=== PATIENT | male | born 1945 | race Caucasian/White ===

== ENCOUNTER 2024-06-28 10:03 | Outpatient (CLI) | payer MEDICARE ==
[~2024-06-28] VITALS: Ht 185.4 cm; Wt 99.8 kg
[2024-06-28 10:45] LABS: TOTAL HEMOGLOBIN 12.6 G/dl (13.5-17.5)
[2024-06-28] MEDS: albuterol 2.5 MG/3 ML nebule NEB ONE (11:26)
[2024-06-28 11:30] VITALS: PULSE 95; RESP 24; O2SAT 90
[2024-06-28 11:50] VITALS: PULSE 88; RESP 18
--- NOTE | 2024-06-29 15:47 | PROCEDURE NOTE - Respiratory ---
Procedure Note-Respiratory Providers to Copies To 1: LEVON VELASQUEZ MD Procedure Name: This is a complete pulmonary function study dated June 28, 2024. Hemoglobin measurement was done as part of the study. Spirometry measurements: There is substantial reduction in both the forced vital capacity and the FEV1. The FEV1 ratio is also quite low. All of the measured flow rates are very poor. After inhaled bronchodilator the flow rate measurements show slight improvement. Lung volume measurements: The total lung capacity and functional residual capacity measurements are normal. The residual volume is slightly elevated. Lung diffusion measurement: The DLCO is clearly reduced. This indicates abnormal gas transfer abilities of the lung. It is noted that the hemoglobin measurement is in the lower range of normal. Airway resistance measurement: The airway resistance is significantly elevated. This again suggests significant airway obstruction. Overall conclusion: This study shows severe abnormality. There is evidence for severe obstructive ventilatory defect. This is consistent with the patient's diagnosis of smoking-related COPD. The DLCO measurement is reduced which s uggests a possible component of emphysema. The patient shows slight improvement with inhaled bronchodilator. Continued use of inhaled bronchodilator medication is recommended. We have no previous studies for comparison. Close pulmonary follow-up will be required for this patient with severely abnormal lung function. LEVON VELASQUEZ MD June 29, 2024 15:47
== END 2024-06-28 23:59 | disposition home or self-care (01) ==
LOC: RT 10:03
PROVIDERS: ATTEND Internal Medicine Pulmonary Disease
DX: J44.9 Chronic obstructive pulmonary disease, unspecified (principal)
CPT/HCPCS: 85018; 94060; 94727; 94729; 94760

== ENCOUNTER 2025-01-07 08:28 | Inpatient (IN) | payer MEDICARE, MEDICAID ==
[~2025-01-07] VITALS: Ht 185.4 cm; Wt 95.4 kg
[2025-01-07] VITALS (12 sets, daily range): BP systolic 116–118; BP diastolic 54–58; PULSE 80–97; RESP 16–36; TEMP 97.3–97.7; O2SAT 92–97
--- NOTE | 2025-01-07 08:44 | ELECTROCARDIOGRAPH REPORT ---
[facility] Test Date: 2025-01-07 Test Time: 08:41:42 Pat Name: SHARONDA RADER Department: [facility] Patient ID: [facility]-[id number] Room: [place] [address] Gender: M [employer] Att[employer]: : 1945 Requested By: DEBBIE LIANG Order Number: [id number] Reading MD: Dr. SUNG Schmitz Measurements Intervals [place] Rate: 95 P: 30 NH: 153 QRS: -44 QRSD: 96 T: 56 QT: 368 QTc: 463 Interpretive Statements Sinus rhythm Ventricular premature complex Probable left atrial enlargement Left axis deviation Borderline low voltage, extremity leads Consider anterior infarct Electronically Signed On 01-09-2025 19:23:[address] SUNG Schmitz Please click the below link to view image of tracing.
--- NOTE | 2025-01-07 08:51 | RADIOLOGY REPORT ---
CHEST RADIOGRAPH Indication: CP Technique: Single frontal view of the chest was obtained COMPARISON: None FINDINGS: Lines and Tubes: None Lungs: Increased interstitial prominence. This may represent pulmonary vascular congestion and/or viral pneumonia. Left basilar subsegmental atelectasis. Pleura: No effusion. No pneumothorax. Cardiomediastinal contours: Cardiomegaly. Vascular calcifications of the aorta. Bones: Unremarkable IMPRESSION: Increased interstitial prominence. This may represent pulmonary vascular congestion and/or viral pneumonia. Left basilar subsegmental atelectasis.
[2025-01-07 09:36] LABS: MEAN PLATELET VOLUME 8.6 FL (7.4-10.4)
[2025-01-07 10:01] LABS: RED CELL DISTRIBUTION WIDTH 15.9 % (11.5-14.5)
[2025-01-07 10:02] LABS: CREATININE 1.17 MG/DL (0.60-1.10); PRO BRAIN NATRIURETIC PEPTIDE 730 PG/ML (0-450); eCRCL 59 ML/MIN; eGFR 60 ML/MIN
[2025-01-07 10:07] LABS: TOTAL CARBON DIOXIDE 46.6 MMOL/L (24-32)
[2025-01-07] MEDS: ipratropium/albuterol 3ml nebule NEB ONE ×2 (10:15)
--- NOTE | 2025-01-07 10:36 | Physician Documentation ---
History of Present Illness ~ Chief Complaint: Shortness of Breath Stated Complaint: POSS SEPSIS Time Seen by MD: 08:35 Mode of Arrival: EMS HPI 79 yom h/o severe COPD on HOT p/w sob. Reports increasing dyspnea the last few weeks. He was found slumped down on the ground hypoxic not on his home 02. He was placed on 6 L NC by EMS with return to baseline oxygenation and improved men [place] state. Denies any chest pain or fevers. No cough. Just increasing dyspnea. No abdominal pain. lower ext edema worse than usual also endorsed. Medication Reconciliation Allergies: Coded Allergies: Penicillins (Verified Allergy, Unknown, 06/28/24) Review of Systems Constitutional: Denies: fever Respiratory: Reports: shortness of breath Gastrointestinal: Denies: abdominal pain Physical Exam Vital Signs: Temperature: 98.7, Source: Oral, Heart Rate: 91, Respiratory Rate: 16, BP: 128/65, Pulse Oximetry: 97, Weight: 93.800 Oxygen Flow Rate: 1.0 Physical Exam non toxic no jvd awake alert fatigued lungs diminished flow bilaterally no wheezing or rhonchi. abdomen soft non tender lower ext 2+ pitting edema bilaterally skin warm well perfused. Progress Results/Orders Results/Orders Orders - DEBBIE LIANG MD Chest,Single View (01/07/25 08:32) Monitor (01/07/25 08:32) Saline Lock (01/07/25 08:32) Oxygen (01/07/25 08:32) Culture Blood (01/07/25 08:32) Urinalysis, Cult If Indicated (01/07/25 08:32) Straight Cath For Urine Sample (01/07/25 08:32) Abg (Arterial Blood Gas) (01/07/25 ) Bipap/Cpap (01/07/25 ) Abg Current Settings (01/07/25 ) Completed Orders - DEBBIE LIANG MD Chest,Single View (01/07/25 08:32) Cbc/Diff (01/07/25 08:32) BMP (01/07/25 08:32) PBNP (01/07/25 08:32) Electrocardiogram (01/07/25 08:32) Hs Troponin I W Calculations (01/07/25 08:32) Hs Troponin I W Calculations (01/07/25 10:32) Procalcitonin (01/07/25 08:32) Lacticsepsis (01/07/25 08:32) Ipratropium/Albuterol Nebule (Ipratrop/A (01/07/25 09:30) Methylprednisolone Sod Succ (Solumedrol (01/07/25 10:10) Ipratropium/Albuterol Nebule (Ipratrop/A (01/07/25 10:10) Furosemide Inj (Lasix Inj) (01/07/25 10:10) Medications Received in ER Medications (Trade) Dose Ordered Sig/Windy Route PRN Reason Start Time Stop Time Status Last Admin Dose Admin (ipratrop/ albuterol 0.5-3(2.5) MG/3ml nebule) 3 ml ONCE ONCE NEB 01/07/25 09:30 01/07/25 09:31 DC 01/07/25 10:41 3 ML (SoluMEDROL 125mg inj) 125 mg ONCE ONCE IV 01/07/25 10:10 01/07/25 10:16 DC 01/07/25 10:40 125 MG (ipratrop/ albuterol 0.5-3(2.5) MG/3ml nebule) 3 ml ONCE ONCE NEB 01/07/25 10:10 01/07/25 10:16 DC 01/07/25 10:15 3 ML (Lasix inj) 60 mg ONCE ONCE IV 01/07/25 10:10 01/07/25 10:16 DC 01/07/25 10:39 60 MG Vital Signs 01/07/25 01/07/25 01/07/25 01/07/25 08:33 08:46 08:52 09:16 Temp 98.7 98.7 98.7 Pulse 99 101 96 Resp 18 B/P (MAP) 135/72 135/72 (93) 128/65 (86) Pulse Ox 95 85 97 O2 Flow Rate 6.0 6.0 1.0 01/07/25 01/07/25 01/07/25 01/07/25 10:17 10:48 10:53 11:01 Pulse 91 91 91 94 Resp 16 19 20 18 19 18 Pulse Ox 97 96 92 94 O2 Delivery Nasal Cannula* BiPAP+ O2 Flow Rate 5 FiO2 40 40 40 40 01/07/25 01/07/25 11:08 11:10 Temp 98.7 Pulse 81 Resp 18 B/P (MAP) 125/65 (85) Pulse Ox 95 95 O2 Delivery BiPAP+ FiO2 40 40 Laboratory Tests Test 01/07/25 08:55 01/07/25 10:36 01/07/25 10:51 White Blood Count 9.1 Red Blood Count 4.36 L Hemoglobin 12.2 L Hematocrit 37.6 L Mean Corpuscular Volume 86.2 Mean Corpuscular Hemoglobin 27.9 Mean Corpuscular Hemoglobin Concent 32.4 L Red Cell Distribution Width 15.9 H Platelet Count 229 Mean Platelet Volume 8.6 Neutrophils (%) (Auto) 82.0 H Lymphocytes (%) (Auto) 7.9 L Monocytes (%) (Auto) 8.5 Eosinophils (%) (Auto) 1.2 Basophils (%) (Auto) 0.4 Neutrophils # (Auto) 7.5 Lymphocytes # (Auto) 0.7 L Monocytes # (Auto) 0.8 Eosinophils # (Auto) 0.1 Basophils # (Auto) 0.0 CBC Comment Sodium Level 142 Potassium Level 4.4 Chloride Level 97 L Carbon Dioxide Level 46.6 *H Anion Gap -2 L Blood Urea Nitrogen 29 H Creatinine 1.17 H Estimated GFR/1.73 m2 60 BUN/Creatinine Ratio 24.8 H Glucose Level 114 H Lactic Acid Level 1.1 Calcium Level 9.1 Troponin I High Sensitivity 15 16 Pro-B-Type Natriuretic Peptide 730 H Albumin 3.1 L Procalcitonin < 0.05 Chemistry Comments Troponin I High Sens Percent Delta 6 Troponin I Hi Sens Absolute Change 1 Blood Gas Specimen Type Arterial Blood Gas Puncture Site Rr O2 Saturation 92.2 L Arterial Blood pH (Temp corrected) 7.160 *L Arterial Blood pCO2 (Temp correct) > 150.0 *H Arterial Blood pO2 (Temp corrected) 75.2 L Arterial Blood PO2/FiO2 Ratio 1.93 Arterial Blood HCO3 55.4 H Arterial Blood Base Excess 19.4 H Arterial Blood Oxyhemoglobin 91.0 L Arterial Blood Carboxyhemoglobin 1.2 Arterial Blood Methemoglobin 0.1 Arterial Blood Deoxyhemoglobin 7.7 H Marcos Test Modified Blood Gas Hemoglobin 13.6 Blood Gas Temperature 36.6 Blood Gas Set Respiration Rate 16 Blood Gas Modality Mask - bipap FiO2 40.0 Blood Gas Critical Value Called To dr jessica francois Microbiology Date/Time Source Procedure Growth Status 01/07/25 09:04 Blood Arm Right Blood Culture - Preliminary NEGATIVE (LESS THAN 24 HOURS) Resulted EKG/XRAY/CT/US/VASC/MRI EKG : Additional Comment EKG indepentently interpreted 0841 sinus rhytm rate 95 left axis, normal intervals. No st abnormality. Medical Decision Making Additional information obtaine: old records (spirometry 06/2024 severe flow restriction) Findings 79 yom h/o severe copd p/w dyspnea found to be in mild CHF and hypercapneic respiratory failure requiring bipap. Stable on bipap. Heart Score: 0 Differential Dx:Considerations: Include: anxiety, asthma, bronchitis, cardiogenic shock, CHF, COPD Departure Disposition: ADMITTED INPATIENT Admitted to Inpatient Unit: to hospitalist Impression: Primary Impression: Chronic obstructive pulmonary disease Qualified Codes: J44.1 - Chronic obstructive pulmonary disease with (acute) exacerbation Additional Impression: Respiratory failure Qualified Codes: J96.21 - Acute and chronic respiratory failure with hypoxia; J96.22 - Acute and chronic respiratory failure with hypercapnia Referrals: NO PRIMARY CARE PROVIDER (PCP) Critical Care Note Total Time (mins): 30 Critical Care Note The very real possibility of a deterioration of this patient's condition required the highest level of my preparedness for sudden, emergent intervention. I provided critical care services, which included medication orders, frequent reevaluations of the patient's condition and response to treatment, ordering and reviewing test results, and discussing the case with various consultants. Excludes time spent performing separately billable procedures. The critical care time associated with the care of the patient was thirty minutes in the management of respiratory failure requiring rescue bipap. Signature Scribe Signature: jc Attestation: DEBBIE Bach MD Jan 07, 2025 10:36
[2025-01-07] MEDS: furosemide 10 MG/1 ML 10ml inj IV ONE (10:39)
[2025-01-07 10:56] LABS: ABG BASE EXCESS 19.4 mmol/L (-2.0-3.0); ABG HCO3 55.4 mmol/L (21.0-28.0); ABG OXYGEN SATURATION 92.2 % (94.0-98.0); ABG PCO2 (T) > 150.0 mmHg (35.0-48.0); ABG PH (T) 7.160 (7.350-7.450); ABG PO2 (T) 75.2 mmHg (83.0-108.0); ALLEN'S TEST Modified; FCOHb 1.2 % (0.5-1.5); FHHb 7.7 % (0.0-5.0); FIO2 40.0 mmHg/%; FMetHb 0.1 % (0.0-1.5); FO2Hb 91.0 % (94.0-98.0); MODE MASK - BIPAP; PATIENT TEMPERATURE 36.6; RESPIRATORY RATE 16 b/min; TOTAL HEMOGLOBIN 13.6 G/dl (13.5-17.5)
[2025-01-07 11:58] LABS: ABG BASE EXCESS 20.6 mmol/L (-2.0-3.0); ABG HCO3 55.0 mmol/L (21.0-28.0); ABG OXYGEN SATURATION 92.1 % (94.0-98.0); ABG PCO2 (T) 136.8 mmHg (35.0-48.0); ABG PH (T) 7.222 (7.350-7.450); ABG PO2 (T) 72.8 mmHg (83.0-108.0); ALLEN'S TEST POSITIVE; FCOHb 1.2 % (0.5-1.5); FHHb 7.8 % (0.0-5.0); FIO2 40.0 mmHg/%; FMetHb 0.1 % (0.0-1.5); FO2Hb 90.9 % (94.0-98.0); MODE MASK - BIPAP; PATIENT TEMPERATURE 37.0; RESPIRATORY RATE 18 b/min; TOTAL HEMOGLOBIN 13.4 G/dl (13.5-17.5)
[2025-01-07 11:59] LABS: LEUKOCYTE ESTERASE ,URINE NEGATIVE (Neg); NITRITES, URINE NEGATIVE (Neg); OCCULT BLOOD,URINE NEGATIVE (Neg)
[2025-01-07 12:09] LABS: UA COLLECTION TYPE CLN CATCH MIDSTREAM
[2025-01-07 12:10] LABS: SQUAMOUS EPITHELIAL CELL,UR FEW /LPF (FEW)
--- NOTE | 2025-01-07 12:46 | HISTORY AND PHYSICAL ---
History & Physical Providers to Chief complaint, fall, shortness of breath ~ History of Present Illness Reason for Admit\Complaint: As above History of Present Illness This is a 79 years old white male with history of multiple medical problems including severe COPD on home oxygen at home, noncompliance with home oxygen treatment, history of remote smoking tobacco, hypoalbuminemia metabolic acidosis, presented today to emergency department chief complaint generalized weakness associated with mechanical fall ground level and shortness of breath; in addition patient Reports increasing dyspnea the last few weeks. He was found slumped down on the ground hypoxic not on his home 02. He was placed on 6 L NC by EMS with return to baseline oxygenation and improved mental state. Denies any chest pain or fevers. No cough. Just increasing dyspnea. No abdominal pain. lower ext edema worse than usual also endorsed. In emergency department he was evaluated by physician was diagnosed with chronic COPD in exacerbation, chronic hypoxia in exacerbation, acute respiratory failure placed on BiPAP, and decision was made to admit patient for further evaluation and treatment, no additional complaint or concern. Allergies: Coded Allergies: Penicillins (Verified Allergy, Unknown, 06/28/24) Active prescriptions I reviewed reconciled Home Medications Pending Past Medical History Past Medical History As in HPI Past Surgical History Surgical History Comment As in HPI Past Social History Social History Comment Deny illicit drug abuse tobacco alcohol use live with the family good social support Health Maintenance Health Maintenance Noncontributory ROS ROS Constitutional : no fever , no chills, positive for generalized weakness. No diaphoresis. Allergic/Immunologic, no lymphadenopathy, no hives, no skin eruptions. Eyes, no recent visual changes, no eye pain, no photophobia. Ears, nose, mouth, throat, no sore throat, no nosebleed, no ear pain. Cardiovascular, no palpitations, skipped beats, chest pain, no peripheral edema, Respiratory, positive for dyspnea, orthopnea, cough, no hemoptysis, chest wall pain. Gastrointestinal, no abdominal pain, nausea, vomiting, constipation or diarrhea. : no dysuria, hematuria, pelvic pain, urethral d/c. Endocrine, no polyuria, polydipsia, recent unintentional weight gain or loss. Hematologic/Lymphatic, no petechiae, no enlarged lymph nodes, no bone pain. Integumentary, no rash, no skin lesions, Musculoskeletal, no muscle aches, or pain, no muscle cramps, no recent change in gait Neurological, no dizziness, no headache, no syncope, no paresthesia. Psychiatric, no delusions, visual hallucinations, or hearing hallucinations. ROS - in rest is as in HPI. Exam Vitals: Vital Signs Date Time Temp Pulse Resp B/P (MAP) Pulse Ox O2 Delivery O2 Flow Rate FiO2 01/07/25 11:58 23 40 01/07/25 11:10 95 BiPAP+ 01/07/25 11:08 98.7 81 125/65 (85) 01/07/25 10:17 5 Vital signs, stable ,afebrile. Pulse Oximetry reflects adequate oxygenation on BiPAP FiO2 40%. BMI is 27, weight 93 kg General: well developed, well nourished. Awake , alert, and oriented x4, resting comfortably in the bed, in no acute distress . Skin: Warm, dry, no pallor, no rash or petechiae. HEENT: Atraumatic, normocephalic, EOMI, anicteric sclera B; pink conjunctiva; PERRLA, normal oropharynx, moist oral and nasal mucosa. Tympanic membrane , nose , throat clear. Neck: Trachea midline. Supple, full range of motion, no JVD, bruit , hepatojugular reflex , lymphadenopathy or masses, or other lesions Cardiac: Regular rhythm, regular rate no murmurs, rubs, or gallops. Normal S1 and S2, no S3 noticed. PMI is normal. Respiratory: Equal breath sounds bilaterally, no tachypnea; lungs clear to auscultation bilaterally, no wheezing ,rub or rales, or crackles. Chest wall is symmetric and without deformity. No signs of trauma. Chest wall is nontender. No signs of respiratory distress. Resonance is normal upon percussion bilaterally. Gastrointestinal: Abdomen symmetric, non-distended, soft, non-tender, normal bowel sounds x4 quadrant, normoactive, no hepatosplenomegaly , no masses , no bruit, no flank pain bilaterally. No voluntary guarding, rebound, or rigidity. No tenderness to percussion. No pulsatile masses. Equal femoral pulses. No Peralta's sign or McBurney point tenderness. Back; no CVA tenderness bilaterally, no deformities. Neck and back are without deformity as well. No tenderness noted on palpation of the spinous processes. Spinous processes are midline. Cervical, thoracic, and lumbar paraspinal muscles are not tender and are without spasm. : normal external genitalia, without lesions, swelling, masses or tenderness. Musculoskeletal: Extremities, normal range of motion, non-tender, muscle strength 5/5 x 4. Negative Homans signs bilaterally on lower extremity. Distal pulses full symmetrical, no clubbing, cyanosis , edema. Neurological: Speech is clear, alert, and oriented x 4. No motor or sensory deficit, deep tendon reflexes normal, cerebellar intact. Cranial nerves II-XII intact. Psych: Alert and or appropriate, normal affect. Vascular: Good distal pulses, which are equal x4; capillary refill less than 2 seconds. Lymphatic, no lymphadenopathy. Diagnostic Data Last Recorded Lab Results: 01/07/2585401/07/25854 Advance Care Planning Advanced Care plannin - 30 Minutes Additional Plan Assessment Severe COPD in exacerbation Chronic hypoxic respiratory failure on home oxygen in exacerbation Acute respiratory failure hypoxic hypercapnic Mechanical fall ground level Hypoalbuminemia Respiratory acidosis Noncompliant with treatment Generalized weakness CHF in exacerbation ejection fraction unknown Plan IV antibiotics, Lasix prn IV steroids SVN DuoNeb, oxygen support therapy, patient on BiPAP PT evaluation and treatment Echocardiography pending Additional lab work pending I reconciled home medications DVT gastropathy prophylaxis addressed Sepsis Screening Reassessment Date: Jan 07, 2025 Date of Service: Jan 07, 2025 Billing Provider: CLEO ROMO MD Common Visit Codes: 30714-NRDFWEB INP/OBS CARE (HIGH) Secondary Visit Codes: 11884-[id number] CARE PLAN 30 MINUTES CLEO ROMO MD Jan 07, 2025 12:46
[2025-01-07] MEDS ORDERED: mag hydrox/Alum hydrox/simeth 30ml oral suspension PO PRN (12:50)
[2025-01-07] MEDS ORDERED: HYDROcodone/acetaminophen 10/325mg tab PO PRN (12:50)
[2025-01-07] MEDS ORDERED: acetaminophen 650mg rectal suppository RC PRN (12:50)
[2025-01-07] MEDS ORDERED: magnesium sulf-water 4G/100mL 100 ML IV PRN (12:50)
[2025-01-07] MEDS ORDERED: potassium Cl 40MEQ/1/2NS 520ml 520 ML IV PRN (12:50)
[2025-01-07] MEDS ORDERED: potassium Cl 20 mEq SR tablet PO PRN ×2 (12:50)
[2025-01-07] MEDS ORDERED: bisacodyl 10mg suppository rectal RC PRN (12:50)
[2025-01-07] MEDS ORDERED: HYDROcodone/acetaminophen 5mg/325mg tablet PO PRN (12:50)
[2025-01-07] MEDS ORDERED: magnesium sulf-water 2g/50mL 50 ML IV PRN (12:50)
[2025-01-07] MEDS ORDERED: ipratropium/albuterol 3ml nebule NEB PRN (12:50)
[2025-01-07] MEDS ORDERED: magnesium Cl slow-release 64mg tablet PO PRN (12:50)
[2025-01-07] MEDS ORDERED: ondansetron 4mg rapidly disintigrating tab PO PRN (12:50)
[2025-01-07] MEDS: normal saline 1000ml 1,000 ML IV SCH (13:38)
[2025-01-07] MEDS: levoFLOXACIN-Levaquin 500mg/D5 100 ML IV SCH (13:38)
[2025-01-07 13:41] LABS: PHOSPHORUS 5.2 MG/DL (2.3-4.5); PRO BRAIN NATRIURETIC PEPTIDE 797.0 PG/ML (0-450)
[2025-01-07 14:07] LABS: APTT 30 SECONDS (22-32); INR 1.1 INR
[2025-01-07] MEDS ORDERED: DAPA10TA PO (15:15)
[2025-01-07] MEDS ORDERED: POTA-206 PO (15:15)
[2025-01-07] MEDS ORDERED: OMEP20CA16 PO (15:15)
[2025-01-07] MEDS ORDERED: FURO-150 PO (15:15)
[2025-01-07] MEDS ORDERED: ATOR20TA66 PO (15:15)
[2025-01-07] MEDS ORDERED: ALBU5SOL17 NEB (15:15)
[2025-01-07 15:22] LABS: ABG BASE EXCESS 18.5 mmol/L (-2.0-3.0); ABG HCO3 48.4 mmol/L (21.0-28.0); ABG OXYGEN SATURATION 94.0 % (94.0-98.0); ABG PCO2 (T) 87.7 mmHg (35.0-48.0); ABG PH (T) 7.360 (7.350-7.450); ABG PO2 (T) 71.4 mmHg (83.0-108.0); ALLEN'S TEST POSITIVE; FCOHb 1.0 % (0.5-1.5); FHHb 5.9 % (0.0-5.0); FIO2 40.0 mmHg/%; FMetHb 0.3 % (0.0-1.5); FO2Hb 92.8 % (94.0-98.0); MODE MASK - BIPAP; PATIENT TEMPERATURE 37.0; RESPIRATORY RATE 20 b/min; TOTAL HEMOGLOBIN 12.8 G/dl (13.5-17.5)
[2025-01-07] MEDS ORDERED: FLUT1BLS3 INH (16:29)
[2025-01-07] MEDS: methylPREDNISolone sod succ/PF 40mg inj. IV SCH (19:25)
[2025-01-07] MEDS: docusate sod 100mg capsule PO SCH (19:26)
[2025-01-07] MEDS: heparin, porcine 5000 units/ml vial SQ SCH (19:26)
[2025-01-07] MEDS: K and/or MAG REPLACEMENT MC SCH (19:27)
[2025-01-07] MEDS: albuterol 2.5 MG/3 ML nebule NEB PRN (22:20)
[2025-01-08] VITALS (16 sets, daily range): BP systolic 103–123; BP diastolic 5–60; PULSE 77–102; RESP 16–28; TEMP 97–98.6; O2SAT 84–97
[2025-01-08] MEDS: albuterol 2.5 MG/3 ML nebule NEB SCH (03:35)
[2025-01-08 06:06] LABS: MEAN PLATELET VOLUME 8.9 FL (7.4-10.4); RED CELL DISTRIBUTION WIDTH 16.6 % (11.5-14.5)
[2025-01-08 06:22] LABS: CHOL/HDL RATIO 2.2 (0.00-4.99); CREATININE 1.14 MG/DL (0.60-1.10); LDL CHOLESTEROL 38 MG/DL (50-100); eCRCL 60 ML/MIN; eGFR 62 ML/MIN
[2025-01-08 07:00] LABS: TOTAL CARBON DIOXIDE 43.4 MMOL/L (24-32)
--- NOTE | 2025-01-08 14:57 | CARDIOLOGY REPORT ---
APPROVED REPORT EXAM: Comprehensive 2D, Doppler, and color-flow Echocardiogram. Patient Location: 3027 A Heart Rate: 90's bpm Rhythm: SINUS Indications CONGESTIVE HEART FAILURE PBNP 730 COPD [place] Vessel Pilot: Katt Kwok MD Previous echo: NONE AVAILABLE (AFTER HOURS) 2D Dimensions LVOT Diameter 2.50 (1.8-2.4cm) M-Mode Dimensions Aortic Root 3.79 (2.2-3.7cm) Aortic Valve AoV Peak Omar. 154.6 cm/s AoV VTI 26.0 cm AO Peak GR. 9.6 mmHg AO Mean GR. 5 mmHg LVOT VTI 23.00 cm LVOT Peak Omar. 122.9 cm/s KHLOE (VTI) 4.30 cm2 AV DI 1.01 % Mitral Valve MV Peak Gr. 3 mmHg MV PHT 60 ms MVA (PHT) 3.67 cm2 MV VMax 92.3 cm/s LEFT VENTRICLE Normal appearing LV size and wall thickness. Overall systolic function is normal. LVEF is 60-65%. RIGHT VENTRICLE RV appears normal in size and function. TDS. ATRIA The left atrium size appears normal. TDS. AORTIC VALVE Probable trileaflet AV appears mildly sclerotic obvious stenosis. No insufficiency. TDS. MITRAL VALVE Mild MV annular calcification without stenosis. Trace regurgitation. TDS. TRICUSPID VALVE TV appears structurally normal with trace regurgitation. TDS PULMONIC VALVE Pulmonic valve is grossly normal in structure. TDS GREAT VESSELS The aortic root is upper limit normal in size. PERICARDIUM Normal pericardium. No effusion. Other Information Study Quality: Technically Difficult due to copd, pt extremely sob, and patient positioning.
--- NOTE | 2025-01-08 17:09 | PROGRESS NOTE ---
Daily Progress Note Providers to CC Feels better today ~ Donato-Non Protocol Donato Indications Met/Not Met: F/C Indications Not Met Antibiotic Timeout Antibiotic Ordered?: Yes MRSA Education MRSA Education Provided to pt: Yes Subjective As above Objective Vital Signs Date Time Temp Pulse Resp B/P (MAP) Pulse Ox O2 Delivery O2 Flow Rate FiO2 01/08/25 16:10 83 24 93 Nasal Cannula* 6 44 01/08/25 15:00 98.3 108/5 (39) Vital signs, stable ,afebrile. Pulse Oximetry reflects adequate oxygenation. BMI is General: well developed, well nourished. Awake , alert, and oriented x4, resting comfortably in the bed, in no acute distress . Skin: Warm, dry, no pallor, no rash or petechiae. HEENT: Atraumatic, normocephalic, EOMI, anicteric sclera B; pink conjunctiva; PERRLA, normal oropharynx, moist oral and nasal mucosa. Tympanic membrane , nose , throat clear. Neck: Trachea midline. Supple, full range of motion, no JVD, bruit , hepatojugular reflex , lymphadenopathy or masses, or other lesions Cardiac: Regular rhythm, regular rate no murmurs, rubs, or gallops. Normal S1 and S2, no S3 noticed. PMI is normal. Respiratory: Equal breath sounds bilaterally, no tachypnea; lungs clear to auscultation bilaterally, no wheezing ,rub or rales, or crackles. Chest wall is symmetric and without deformity. No signs of trauma. Chest wall is nontender. No signs of respiratory distress. Resonance is normal upon percussion bilaterally. Gastrointestinal: Abdomen symmetric, non-distended, soft, non-tender, normal bowel sounds x4 quadrant, normoactive, no hepatosplenomegaly , no masses , no bruit, no flank pain bilaterally. No voluntary guarding, rebound, or rigidity. No tenderness to percussion. No pulsatile masses. Equal femoral pulses. No Peralta's sign or McBurney point tenderness. Back; no CVA tenderness bilaterally, no deformities. Neck and back are without deformity as well. No tenderness noted on palpation of the spinous processes. Spinous processes are midline. Cervical, thoracic, and lumbar paraspinal muscles are not tender and are without spasm. : normal external genitalia, without lesions, swelling, masses or tenderness. Musculoskeletal: Extremities, normal range of motion, non-tender, muscle strength 5/5 x 4. Negative Homans signs bilaterally on lower extremity. Distal pulses full symmetrical, no clubbing, cyanosis , , bilateral lower extremity plus two edema up to the knees Neurological: Speech is clear, alert, and oriented x 4. No motor or sensory deficit, deep tendon reflexes normal, cerebellar intact. Cranial nerves II-XII intact. Psych: Alert and or appropriate, normal affect. Vascular: Good distal pulses, which are equal x4; capillary refill less than 2 seconds. Lymphatic, no lymphadenopathy. Result Diagram: 01/08/252 01/08/25 0452 Coagulation Studies Laboratory Tests Test 01/07/25 13:35 Prothrombin Time 11.5 SECONDS (9.0-12.0) INR International Normalized Ratio 1.1 INR Activated Partial Thromboplast Time 30 SECONDS (22-32) D-Dimer 0.74 MG/L FEU (0-0.50) H D-Dimer Comment Coagulation Comments Problem\Assessment\Plan Assessment/plan Severe COPD in exacerbation Chronic hypoxic respiratory failure on home oxygen in exacerbation Acute respiratory failure hypoxic hypercapnic Mechanical fall ground level Hypoalbuminemia Respiratory acidosis Noncompliant with treatment Generalized weakness CHF in exacerbation ejection fraction unknown Plan IV antibiotics, Lasix prn IV steroids SVN DuoNeb, oxygen support therapy, patient on BiPAP PT evaluation and treatment Echocardiography pending Additional lab work pending I reconciled home medications DVT gastropathy prophylaxis addressed Sepsis Screening Reassessment Date: Jan 08, 2025 Date of Service: Jan 08, 2025 Billing Provider: CLEO ROMO MD Common Visit Codes: [id number] INP/OBS CARE(HIGH) CLEO ROMO MD Jan 08, 2025 17:09
[2025-01-08] MEDS: oxymetazoline 15 ML nasal spray NS SCH (19:23)
--- NOTE | 2025-01-08 20:07 | PROGRESS NOTE ---
Daily Progress Note Providers to CC ~ chief complaint, bilateral lower extremity edema otherwise feels better less shortness of breath Central Line/PICC still needed: No Donato-Non Protocol Donato Indications Met/Not Met: F/C Indications Not Met Antibiotic Timeout Antibiotic Ordered?: Yes MRSA Education MRSA Education Provided to pt: Yes Subjective As above Objective Vital Signs Date Time Temp Pulse Resp B/P (MAP) Pulse Ox O2 Delivery O2 Flow Rate FiO2 01/08/25 16:10 83 24 93 Nasal Cannula* 6 44 01/08/25 15:00 98.3 108/5 (39) Vital signs, stable ,afebrile. Pulse Oximetry reflects adequate oxygenation. On 6 L oxygen nasal cannula General: well developed, well nourished. Awake , alert, and oriented x4, resting comfortably in the bed, in no acute distress . Skin: Warm, dry, no pallor, no rash or petechiae. HEENT: Atraumatic, normocephalic, EOMI, anicteric sclera B; pink conjunctiva; PERRLA, normal oropharynx, moist oral and nasal mucosa. Tympanic membrane , nose , throat clear. Neck: Trachea midline. Supple, full range of motion, no JVD, bruit , hepatojugular reflex , lymphadenopathy or masses, or other lesions Cardiac: Regular rhythm, regular rate no murmurs, rubs, or gallops. Normal S1 and S2, no S3 noticed. PMI is normal. Respiratory: Equal breath sounds bilaterally, no tachypnea; lungs clear to auscultation bilaterally, no wheezing ,rub or rales, or crackles. Chest wall is symmetric and without deformity. No signs of trauma. Chest wall is nontender. No signs of respiratory distress. Resonance is normal upon percussion bilaterally. Gastrointestinal: Abdomen symmetric, non-distended, soft, non-tender, normal bowel sounds x4 quadrant, normoactive, no hepatosplenomegaly , no masses , no bruit, no flank pain bilaterally. No voluntary guarding, rebound, or rigidity. No tenderness to percussion. No pulsatile masses. Equal femoral pulses. No Peralta's sign or McBurney point tenderness. Back; no CVA tenderness bilaterally, no deformities. Neck and back are without deformity as well. No tenderness noted on palpation of the spinous processes. Spinous processes are midline. Cervical, thoracic, and lumbar paraspinal muscles are not tender and are without spasm. : normal external genitalia, without lesions, swelling, masses or tenderness. Musculoskeletal: Extremities, normal range of motion, non-tender, muscle strength 5/5 x 4. Negative Homans signs bilaterally on lower extremity. Distal pulses full symmetrical, no clubbing, cyanosis , edema. Neurological: Speech is clear, alert, and oriented x 4. No motor or sensory deficit, deep tendon reflexes normal, cerebellar intact. Cranial nerves II-XII intact. Psych: Alert and or appropriate, normal affect. Vascular: Good distal pulses, which are equal x4; capillary refill less than 2 seconds. Lymphatic, no lymphadenopathy. Result Diagram: 01/08/2545101/08/25 045 Coagulation Studies Laboratory Tests Test 01/07/25 13:35 Prothrombin Time 11.5 SECONDS (9.0-12.0) INR International Normalized Ratio 1.1 INR Activated Partial Thromboplast Time 30 SECONDS (22-32) D-Dimer 0.74 MG/L FEU (0-0.50) H D-Dimer Comment Coagulation Comments Problem\Assessment\Plan Assessment/plan Severe COPD in exacerbation Chronic hypoxic respiratory failure on home oxygen in exacerbation Acute respiratory failure hypoxic hypercapnic Mechanical fall ground level Hypoalbuminemia Respiratory acidosis Noncompliant with treatment Generalized weakness CHF in exacerbation ejection fraction unknown Plan IV antibiotics, Lasix prn IV steroids SVN DuoNeb, oxygen support therapy, patient on nasal cannula, 6 L PT evaluation and treatment Echocardiography pending Additional lab work pending I reconciled home medications DVT gastropathy prophylaxis addressed Sepsis Screening Reassessment Date: Jan 08, 2025 Date of Service: Jan 08, 2025 Billing Provider: CLEO ROMO MD Common Visit Codes: [id number] INP/OBS CARE(HIGH) CLEO ROMO MD Jan 08, 2025 20:07
[2025-01-09] VITALS (15 sets, daily range): BP systolic 102–134; BP diastolic 50–75; PULSE 83–103; RESP 16–27; TEMP 97.3–98.6; O2SAT 90–98
[2025-01-09 07:23] LABS: MEAN PLATELET VOLUME 8.8 FL (7.4-10.4); RED CELL DISTRIBUTION WIDTH 16.5 % (11.5-14.5)
[2025-01-09 07:28] LABS: CREATININE 1.05 MG/DL (0.60-1.10); eCRCL 66 ML/MIN; eGFR 68 ML/MIN
[2025-01-09 07:58] LABS: TOTAL CARBON DIOXIDE 42.4 MMOL/L (24-32)
[2025-01-09] MEDS: magnesium hydroxide 30ml (MOM) UD suspension PO PRN (09:06)
--- NOTE | 2025-01-09 12:42 | CONSULTATION REPORT - RESIDENT ---
Consult Providers to CC Resident Creating Document: EMILY ELENA RES History of Present Illness Reason for Admit\Complaint: Progressive shortness of breath History of Present Illness This is a 79-year-old male patient with a past medical history of COPD on home oxygen who presented to the hospital with symptoms of worsening shortness of breath over the last few weeks and generalized weakness leading to mechanical fall. He was brought in by EMS to the hospital with severe respiratory acidosis with the associated confusion. His symptoms had improved with supplementation of oxygen and he was admitted to the hospital for an acute severe COPD exacerbation. The patient reports using Trelegy at nighttime once a day, a nebulizer 4 times a day and a rescue inhaler daily. He is supposedly to be on 4 L of oxygen via nasal cannula throughout the day but he is noncompliant, oxygen at home was started in 2021 when he was last admitted to the hospital for acute COPD exacerbation. He admits to significant limitation in activity due to the shortness of breath and usually has to use his front wheel walker to even move around his house. Denies any cough, weight loss, chest pain, He quit smoking over 10 years ago. Pulmonology team was consulted for further evaluation office acute on chronic COPD exacerbation as well as poorly controlled COPD. Allergies: Coded Allergies: Penicillins (Verified Allergy, Unknown, 06/28/24) Home Medications Home Medications Active Reported Breo Ellipta 200-25 Mcg INH (Fluticasone/Vilanterol) 200 Mcg-25 Mcg/Dose Blst.w.dev 1 Puffs INH DAILY Lasix (Furosemide) 20 Mg Tablet 5 Mg PO DAILY 30 Days Farxiga (Dapagliflozin Propanediol) 10 Mg Tablet 1 Tab PO DAILY Albuterol Sulfate (Albuterol) 5 Mg/Ml Solution 1 Vial NEB QID Omeprazole 20 Mg Capsule.dr 1 Cap PO DAILY Atorvastatin Calcium 20 Mg Tablet 1 Tab PO DAILY K-Dur (Potassium Chloride) 10 Meq Tab.prt.sr 1 Tab PO DAILY Past Medical History Past Medical History COPD on home oxygen Past Surgical History Surgical History Comment No significant past surgical history Past Social History Social History Comment Quit smoking Denies alcohol or illicit drug abuse Lives at home alone. He has four kids in different states, with the closest one in [place]. His sister and brother live close by to him in [place] He ambulates using a front wheel walker ROS ROS Admits generalized weakness, admits shortness of breath Exam Vitals: Vital Signs Date Time Temp Pulse Resp B/P (MAP) Pulse Ox O2 Delivery O2 Flow Rate FiO2 01/09/25 11:50 89 24 95 Nasal Cannula* 5 40 01/09/25 11:48 97.6 114/54 (74) General: General: Awake and Alert, pursed lip breathing HEENT: Conjunctiva pale, Sclera clear, Mucus Membranes moist. Bluish discoloration of the lips Resp: Diffuse bilateral coarse crepitations heard. Diminished bilateral basilar breath sounds and diminished air entry in the basal lung licea Heart: Regular Rate and rhythm, normal S1 and S2 without murmur, rub or gallop. Abdomen: Soft and non tender no organomegaly Extremities: 3+ bilateral pitting edema with overlying skin erythema noted Skin: Warm and Dry. Diagnostic Data Last Recorded Lab Results: 01/09/25 0625 01/09/25 06 Diagnostic Data: Laboratory Tests Test 01/07/25 13:35 Prothrombin Time 11.5 SECONDS (9.0-12.0) INR International Normalized Ratio 1.1 INR Activated Partial Thromboplast Time 30 SECONDS (22-32) D-Dimer 0.74 MG/L FEU (0-0.50) H D-Dimer Comment Coagulation Comments Additional Plan Acute on chronic exacerbation of COPD: Advanced emphysema On home oxygen 4 L throughout the day One hospitalization in 2021 but requiring rescue inhaler 3-4 times per day. Quit smoking. Home medications include Trelegy HS ABG at admission revealed severe metabolic acidosis, pCO2 greater than 150 Improved acute exacerbation with BiPAP, duo nebs, albuterol and Solu-Medrol 40 mg b.i.d. Blood eosinophil levels less than 300 cells per micro L; patient likely fits criteria for azithromycin due to his former smoking history We will re-evaluate in outpatient pulmonology clinic Continue management with overnight BiPAP Maintain saturation between 88 and 92% Bilateral pitting edema: Poorly performed echocardiogram study due to increased shortness of breath and mobility Cardiomegaly and Pulmonary vascular prominence on chest x-ray with arterial dilatation noted; can not rule out cor pulmonale based on chest x-ray Pleural effusion/left basilar atelectasis on the left on chest x-ray Started on Lasix 20 mg b.i.d. today by primary team Monitor strict I&O Social limitations: Lives alone at home Uses oxygen daily but reports of noncompliance, significantly elevated pCO2 at admission leading to altered mental status PT eval and treat for discharge planning Would likely require evaluation for assisted living facility Lines: PIV Code status: Full code Emily Elena PGY3, Internal medicine resident Date of Service: Jan 09, 2025 Billing Provider: JENNIFER MAGDALENO MD, DEEPANJALI, RES Jan 09, 2025 12:42
--- NOTE | 2025-01-09 17:40 | PROGRESS NOTE ---
Daily Progress Note Providers to CC Feels better today, less shortness of breath less swelling bilateral lower extremity ~ Central Line/PICC still needed: No Donato-Non Protocol Donato Indications Met/Not Met: F/C Indications Not Met Antibiotic Timeout Antibiotic Ordered?: Yes MRSA Education MRSA Education Provided to pt: Yes Subjective As above Objective Vital Signs Date Time Temp Pulse Resp B/P (MAP) Pulse Ox O2 Delivery O2 Flow Rate FiO2 01/09/25 15:47 85 24 Nasal Cannula 5.0 01/09/25 15:42 95 40 01/09/25 11:48 97.6 114/54 (74) Vital signs, stable ,afebrile. Pulse Oximetry reflects adequate oxygenation. 5 L oxygen nasal cannula General: well developed, well nourished. Awake , alert, and oriented x4, resting comfortably in the bed, in no acute distress . Skin: Warm, dry, no pallor, no rash or petechiae. HEENT: Atraumatic, normocephalic, EOMI, anicteric sclera B; pink conjunctiva; PERRLA, normal oropharynx, moist oral and nasal mucosa. Tympanic membrane , nose , throat clear. Neck: Trachea midline. Supple, full range of motion, no JVD, bruit , hepatojugular reflex , lymphadenopathy or masses, or other lesions Cardiac: Regular rhythm, regular rate no murmurs, rubs, or gallops. Normal S1 and S2, no S3 noticed. PMI is normal. Respiratory: Equal breath sounds bilaterally, no tachypnea; lungs clear to auscultation bilaterally, no wheezing ,rub or rales, or crackles. Chest wall is symmetric and without deformity. No signs of trauma. Chest wall is nontender. No signs of respiratory distress. Resonance is normal upon percussion bilaterally. Gastrointestinal: Abdomen symmetric, non-distended, soft, non-tender, normal bowel sounds x4 quadrant, normoactive, no hepatosplenomegaly , no masses , no bruit, no flank pain bilaterally. No voluntary guarding, rebound, or rigidity. No tenderness to percussion. No pulsatile masses. Equal femoral pulses. No Peralta's sign or McBurney point tenderness. Back; no CVA tenderness bilaterally, no deformities. Neck and back are without deformity as well. No tenderness noted on palpation of the spinous processes. Spinous processes are midline. Cervical, thoracic, and lumbar paraspinal muscles are not tender and are without spasm. : normal external genitalia, without lesions, swelling, masses or tenderness. Musculoskeletal: Extremities, normal range of motion, non-tender, muscle strength 5/5 x 4. Negative Homans signs bilaterally on lower extremity. Distal pulses full symmetrical, no clubbing, cyanosis , ; locally, bilateral lower extremity plus two edema up to the middle distance of the lower legs Neurological: Speech is clear, alert, and oriented x 4. No motor or sensory deficit, deep tendon reflexes normal, cerebellar intact. Cranial nerves II-XII intact. Psych: Alert and or appropriate, normal affect. Vascular: Good distal pulses, which are equal x4; capillary refill less than 2 seconds. Lymphatic, no lymphadenopathy. Result Diagram: 01/09/2562401/09/25624 Coagulation Studies Laboratory Tests Test 01/07/25 13:35 Prothrombin Time 11.5 SECONDS (9.0-12.0) INR International Normalized Ratio 1.1 INR Activated Partial Thromboplast Time 30 SECONDS (22-32) D-Dimer 0.74 MG/L FEU (0-0.50) H D-Dimer Comment Coagulation Comments Problem\Assessment\Plan Assessment/plan Severe COPD in exacerbation, no signs of viral pneumonia, ruled out viral pneumonia Chronic hypoxic respiratory failure on home oxygen in exacerbation Acute respiratory failure hypoxic hypercapnic Mechanical fall ground level Hypoalbuminemia Respiratory acidosis Noncompliant with treatment Generalized weakness CHF in exacerbation ejection fraction 62% yesterday Plan IV antibiotics, Lasix IV steroids SVN DuoNeb, oxygen support therapy, patient on 4 L oxygen nasal cannula PT evaluation and treatment Echocardiography completed Appreciate stone rigger assistance and expertise Additional lab work pending I reconciled home medications DVT gastropathy prophylaxis addressed Sepsis Screening Reassessment Date: Jan 09, 2025 Date of Service: Jan 09, 2025 Billing Provider: CLEO ROMO MD Common Visit Codes: [id number] INP/OBS CARE(HIGH) CLEO ROMO MD Jan 09, 2025 17:40
[2025-01-10] VITALS (13 sets, daily range): BP systolic 102–119; BP diastolic 50–62; PULSE 63–100; RESP 12–24; TEMP 97.3–97.9; O2SAT 88–97
[2025-01-10] MEDS: ondansetron/PF 4mg/2ml inj IV PRN (02:52)
[2025-01-10 05:37] LABS: MEAN PLATELET VOLUME 8.6 FL (7.4-10.4); RED CELL DISTRIBUTION WIDTH 16.1 % (11.5-14.5)
[2025-01-10 05:58] LABS: CREATININE 1.11 MG/DL (0.60-1.10); eCRCL 62 ML/MIN; eGFR 64 ML/MIN
[2025-01-10 06:42] LABS: TOTAL CARBON DIOXIDE > 50 MMOL/L (24-32)
--- NOTE | 2025-01-10 11:14 | RADIOLOGY REPORT ---
Indication: Respiratory failure, opacities Technique: CT axial images of the chest are obtained without contrast. Coronal and sagittal reformats were obtained. Radiation Dose Information: CTDI volume is 19 mGy. Dose-length product is 729 mGy*cm Comparison: None FINDINGS: Trachea patent. No pneumothorax. Extensive pulmonary emphysematous changes. Right lower lobe consolidation, atelectasis. Left upper lobe lingular segment and left lower lobe consolidation, atelectasis. Tiny bilateral pleural effusions. Heart size at the upper limits of normal. Coronary artery calcification disease. Aortic atherosclerotic disease. Pretracheal lymph node measuring 15 mm. No supraclavicular, axillary lymphadenopathy. No aggressive osseous process. Thoracic dextrocurvature. IMPRESSION: Limited evaluation without contrast. Bilateral lower lobe, Left upper lobe lingular segment atelectasis and consolidation. Follow-up to resolution exclude any type of obstructing process/endobronchial lesion /mass. Tiny bilateral pleural effusions. Mediastinal lymphadenopathy which can be secondary to infectious, inflammatory, neoplastic processes. Atherosclerotic disease. Extensive pulmonary emphysematous changes. Other findings as described.
--- NOTE | 2025-01-10 12:32 | PROGRESS NOTE ---
Daily Progress Note Providers to CC Patient refused BiPAP, still on 5 L oxygen nasal cannula, baseline is 4 L oxygen at home nasal cannula ~ Central Line/PICC still needed: No Donato-Non Protocol Donato Indications Met/Not Met: F/C Indications Not Met Antibiotic Timeout Antibiotic Ordered?: Yes MRSA Education MRSA Education Provided to pt: Yes Subjective As above Objective Vital Signs Date Time Temp Pulse Resp B/P (MAP) Pulse Ox O2 Delivery O2 Flow Rate FiO2 01/10/25 08:26 92 18 93 Nasal Cannula* 5 40 01/10/25 02:00 97.6 117/54 (75) Vital signs, stable ,afebrile. Pulse Oximetry reflects adequate oxygenation. On 5 L oxygen nasal cannula General: well developed, well nourished. Awake , alert, and oriented x4, resting comfortably in the bed, in no acute distress . Skin: Warm, dry, no pallor, no rash or petechiae. HEENT: Atraumatic, normocephalic, EOMI, anicteric sclera B; pink conjunctiva; PERRLA, normal oropharynx, moist oral and nasal mucosa. Tympanic membrane , nose , throat clear. Neck: Trachea midline. Supple, full range of motion, no JVD, bruit , hepatojugular reflex , lymphadenopathy or masses, or other lesions Cardiac: Regular rhythm, regular rate no murmurs, rubs, or gallops. Normal S1 and S2, no S3 noticed. PMI is normal. Respiratory: Equal breath sounds bilaterally, no tachypnea; lungs clear to auscultation bilaterally, no wheezing ,rub or rales, or crackles. Chest wall is symmetric and without deformity. No signs of trauma. Chest wall is nontender. No signs of respiratory distress. Resonance is normal upon percussion bilaterally. Gastrointestinal: Abdomen symmetric, non-distended, soft, non-tender, normal bowel sounds x4 quadrant, normoactive, no hepatosplenomegaly , no masses , no bruit, no flank pain bilaterally. No voluntary guarding, rebound, or rigidity. No tenderness to percussion. No pulsatile masses. Equal femoral pulses. No Peralta's sign or McBurney point tenderness. Back; no CVA tenderness bilaterally, no deformities. Neck and back are without deformity as well. No tenderness noted on palpation of the spinous processes. Spinous processes are midline. Cervical, thoracic, and lumbar paraspinal muscles are not tender and are without spasm. : normal external genitalia, without lesions, swelling, masses or tenderness. Musculoskeletal: Extremities, normal range of motion, non-tender, muscle strength 5/5 x 4. Negative Homans signs bilaterally on lower extremity. Distal pulses full symmetrical, no clubbing, cyanosis , edema. Neurological: Speech is clear, alert, and oriented x 4. No motor or sensory deficit, deep tendon reflexes normal, cerebellar intact. Cranial nerves II-XII intact. Psych: Alert and or appropriate, normal affect. Vascular: Good distal pulses, which are equal x4; capillary refill less than 2 seconds. Lymphatic, no lymphadenopathy. Result Diagram: 01/10/25 0506 01/10/25 0506 Coagulation Studies Laboratory Tests Test 01/07/25 13:35 Prothrombin Time 11.5 SECONDS (9.0-12.0) INR International Normalized Ratio 1.1 INR Activated Partial Thromboplast Time 30 SECONDS (22-32) D-Dimer 0.74 MG/L FEU (0-0.50) H D-Dimer Comment Coagulation Comments Problem\Assessment\Plan Assessment/plan Severe COPD in exacerbation, Bilateral pneumonia community-acquired mixed ainsley Gram-positive Gram-negative Chronic hypoxic respiratory failure on home oxygen in exacerbation Acute respiratory failure hypoxic hypercapnic Mechanical fall ground level Hypoalbuminemia Respiratory acidosis Noncompliant with treatment Generalized weakness CHF in exacerbation ejection fraction 62% yesterday Plan IV antibiotics, Lasix , Bumex, hydrochlorothiazide IV steroids SVN DuoNeb, oxygen support therapy, patient on 4 L oxygen nasal cannula at home PT evaluation and treatment Echocardiography completed CT of the chest completed Appreciate emergency department assistance and expertise Additional lab work pending I reconciled home medications DVT gastropathy prophylaxis addressed Sepsis Screening Reassessment Date: Jan 10, 2025 Date of Service: Jan 10, 2025 Billing Provider: CLEO ROMO MD Common Visit Codes: [id number] INP/OBS CARE(HIGH) CLEO ROMO MD Jan 10, 2025 12:32
[2025-01-11] VITALS (10 sets, daily range): BP systolic 101–111; BP diastolic 52–68; PULSE 76–106; RESP 16–26; TEMP 97.3–98; O2SAT 92–97
[2025-01-11 06:47] LABS: MEAN PLATELET VOLUME 8.6 FL (7.4-10.4); RED CELL DISTRIBUTION WIDTH 16.0 % (11.5-14.5)
[2025-01-11 07:06] LABS: CREATININE 1.04 MG/DL (0.60-1.10); eCRCL 66 ML/MIN; eGFR 69 ML/MIN
[2025-01-11 07:09] LABS: TOTAL CARBON DIOXIDE > 50 MMOL/L (24-32)
--- NOTE | 2025-01-11 11:01 | PROGRESS NOTE- Residence ---
Progress Note - Resident Providers to CC Resident Creating Document: EMILY ALLEN, ALEXEY ~ Central Line/PICC still needed: No Donato-Non Protocol Donato Indications Met/Not Met: F/C Indications Not Met Antibiotic Timeout Antibiotic Ordered?: Yes Subjective Patient continues to have pursed lipped breathing at bedside. He remains on oxygen via nasal cannula. No difference in bilateral lung licea on auscultation. On further history, the patient reports that he has been losing weight over the last couple of months and has had loss of appetite. Reports occasional cough with expectoration but no hemoptysis. Objective Vital Signs Date Time Temp Pulse Resp B/P (MAP) Pulse Ox O2 Delivery O2 Flow Rate FiO2 01/11/25 07:53 78 18 Nasal Cannula 4.0 01/11/25 07:45 97 44 01/10/25 22:00 97.4 112/54 (73) Result Diagram: 01/11/25 0607 01/11/25 0607 General: Awake and Alert, pursed lip breathing HEENT: Conjunctiva pale, Sclera clear, Mucus Membranes moist. Bluish discoloration of the lips. No palpable lymphadenopathy in the cervical region Resp: Diffuse bilateral coarse crepitations heard. Diminished bilateral basilar breath sounds and diminished air entry in the basal lung licea Heart: Regular Rate and rhythm, normal S1 and S2 without murmur, rub or gallop. Abdomen: Soft and non tender no organomegaly Extremities: 3+ bilateral pitting edema with overlying skin erythema noted Skin: Warm and Dry. Coagulation Studies Laboratory Tests Test 01/07/25 13:35 Prothrombin Time 11.5 SECONDS (9.0-12.0) INR International Normalized Ratio 1.1 INR Activated Partial Thromboplast Time 30 SECONDS (22-32) D-Dimer 0.74 MG/L FEU (0-0.50) H D-Dimer Comment Coagulation Comments Assessment Assessment This is a 79-year-old male patient with a past medical history of emphysema presented to the hospital due to worsening shortness of breath and generalized weakness secondary to the above. He is currently being managed with IV antibiotic therapy for pneumonia induced acute exacerbation and with the diuretics due to presence of increased pulmonary vascular congestion on the chest x-ray. Patient has poorly controlled COPD and has no outpatient pulmonology follow up for his medical condition. Pulmonology team has been consulted for further evaluation of his advanced COPD and for abnormal CT chest findings. Plan Plan Acute on chronic exacerbation of COPD: Advanced emphysema Respiratory acidosis secondary to above Oxygen supplementation via nasal cannula Continue duo nebs, albuterol and Solu-Medrol Blood eosinophil levels less than 300 cells per micro L; patient likely fits criteria for azithromycin due to his former smoking history We will re-evaluate in outpatient pulmonology clinic Continue management with overnight BiPAP Maintain saturation between 88 and 92% Left upper lobe and lower lobe atelectasis: Reactive lymphadenopathy on CT chest Likely secondary to the pneumonia Recommend repeat CT scan in three months Outpatient follow up with pulmonology Bronchoscopy not required at is time Bilateral pitting edema: Poorly performed echocardiogram study due to increased shortness of breath and mobility Cardiomegaly and Pulmonary vascular prominence on chest x-ray with arterial dilatation noted; can not rule out cor pulmonale based on chest x-ray Pleural effusion/left basilar atelectasis on the left on chest x-ray Started on Lasix 20 mg b.i.d. today by primary team Monitor strict I&O Social limitations: Lives alone at home Uses oxygen daily but reports of noncompliance, significantly elevated pCO2 at admission leading to altered mental status PT eval and treat for discharge planning Would likely require evaluation for assisted living facility Lines: PIV Code status: Full code Emily Allen PGY3, Internal medicine resident Date of Service: Jan 11, 2025 Billing Provider: JENNIFER MAGDALENO MD, DEEPANJALI, RES Jan 11, 2025 11:01
--- NOTE | 2025-01-11 17:44 | DISCHARGE SUMMARY ---
Discharge Summary Providers to CC ~ patient is feeling better today, ready for transferred to rehab facility Discharge Summary Assessment Severe COPD in exacerbation Chronic hypoxic respiratory failure on home oxygen in exacerbation Acute respiratory failure hypoxic hypercapnic Mechanical fall ground level Hypoalbuminemia Respiratory acidosis Noncompliant with treatment Generalized weakness CHF in exacerbation , diastolic Admission Diagnosis: COPD Hypoxia Admission Diagnosis Comment: Severe COPD in exacerbation Chronic hypoxic respiratory failure on home oxygen in exacerbation Acute respiratory failure hypoxic hypercapnic Mechanical fall ground level Hypoalbuminemia Respiratory acidosis Noncompliant with treatment Generalized weakness CHF in exacerbation , diastolic Hospital Course DATE OF ADMISSION: January 07, 2025 DATE OF DISCHARGE: January 11, 2025 Discharge Diagnosis\Comment: Severe COPD in exacerbation Chronic hypoxic respiratory failure on home oxygen in exacerbation Acute respiratory failure hypoxic hypercapnic Mechanical fall ground level Hypoalbuminemia Respiratory acidosis Noncompliant with treatment Generalized weakness CHF in exacerbation , diastolic Operations\Procedures: Non Consultants: ICU Complications: Non Condition on DC: Stable for transfer Discharge Summary: This is a 79 years old white male with history of multiple medical problems including severe COPD on home oxygen at home, noncompliance with home oxygen treatment, history of remote smoking tobacco, hypoalbuminemia metabolic acidosis, presented today to emergency department chief complaint generalized weakness associated with mechanical fall ground level and shortness of breath; in addition patient Reports increasing dyspnea the last few weeks. He was found slumped down on the ground hypoxic not on his home 02. He was placed on 6 L NC by EMS with return to baseline oxygenation and improved mental state. Denies any chest pain or fevers. No cough. Just increasing dyspnea. No abdominal pain. lower ext edema worse than usual also endorsed. In emergency department he was evaluated by physician was diagnosed with chronic COPD in exacerbation, chronic hypoxia in exacerbation, acute respiratory failure placed on BiPAP, and decision was made to admit patient for further evaluation and treatment, no additional complaint or concern. Admission patient was extensively evaluated consulted by ICU pulmonology , medications reconciled, ready to be transferred to rehab facility, today on physical exam, Vital signs, stable ,afebrile. Pulse Oximetry reflects adequate oxygenation. General: well developed, well nourished. Awake , alert, and oriented x4, resting comfortably in the bed, in no acute distress . On 4 L oxygen nasal cannula , which is his baseline Skin: Warm, dry, no pallor, no rash or petechiae. HEENT: Atraumatic, normocephalic, EOMI, anicteric sclera B; pink conjunctiva; PERRLA, normal oropharynx, moist oral and nasal mucosa. Tympanic membrane , nose , throat clear. Neck: Trachea midline. Supple, full range of motion, no JVD, bruit , hepatojugular reflex , lymphadenopathy or masses, or other lesions Cardiac: Regular rhythm, regular rate no murmurs, rubs, or gallops. Normal S1 and S2, no S3 noticed. PMI is normal. Respiratory: Equal breath sounds bilaterally, no tachypnea; lungs clear to auscultation bilaterally, no wheezing ,rub or rales, or crackles. Chest wall is symmetric and without deformity. No signs of trauma. Chest wall is nontender. No signs of respiratory distress. Resonance is normal upon percussion bilaterally. Gastrointestinal: Abdomen symmetric, non-distended, soft, non-tender, normal bowel sounds x4 quadrant, normoactive, no hepatosplenomegaly , no masses , no bruit, no flank pain bilaterally. No voluntary guarding, rebound, or rigidity. No tenderness to percussion. No pulsatile masses. Equal femoral pulses. No Peralta's sign or McBurney point tenderness. Back; no CVA tenderness bilaterally, no deformities. Neck and back are without deformity as well. No tenderness noted on palpation of the spinous processes. Spinous processes are midline. Cervical, thoracic, and lumbar paraspinal muscles are not tender and are without spasm. : normal external genitalia, without lesions, swelling, masses or tenderness. Musculoskeletal: Extremities, normal range of motion, non-tender, muscle strength 5/5 x 4. Negative Homans signs bilaterally on lower extremity. Distal pulses full symmetrical, no clubbing, cyanosis , edema. Neurological: Speech is clear, alert, and oriented x 4. No motor or sensory deficit, deep tendon reflexes normal, cerebellar intact. Cranial nerves II-XII intact. Psych: Alert and or appropriate, normal affect. Vascular: Good distal pulses, which are equal x4; capillary refill less than 2 seconds. Lymphatic, no lymphadenopathy. *Problems/Diagnosis: (1) Respiratory failure Status: Acute (2) Chronic obstructive pulmonary disease Status: Acute Total Time Spent on D/C: > 30 Minutes Date of Service: Jan 11, 2025 Billing Provider: CLEO ROMO MD Common Visit Codes: 26896-HGJ/OBS DISCH DAY >30min Problem Qualifiers (1) Respiratory failure: Qualified Codes: J96.21 - Acute and chronic respiratory failure with hypoxia; J96.22 - Acute and chronic respiratory failure with hypercapnia (2) Chronic obstructive pulmonary disease: Qualified Codes: J44.1 - Chronic obstructive pulmonary disease with (acute) exacerbation CLEO ROMO MD Jan 11, 2025 17:43
== END 2025-01-11 16:20 | DRG 177 ==
LOC: ER 08:29 → ED HOLD 12:55 → PCU 3S 15:46
PROVIDERS: ADMIT Family Medicine; ATTEND Family Medicine
PROC: 5A09357 Assistance with Respiratory Ventilation, Less than 24 Consecutive Hours, Continuous Positive Airway Pressure (ICD-10-PCS; principal; 2025-01-07)
DX: J15.69 Pneumonia due to other Gram-negative bacteria (principal); I50.33 Acute on chronic diastolic (congestive) heart failure; J96.22 Acute and chronic respiratory failure with hypercapnia; J96.21 Acute and chronic respiratory failure with hypoxia; E87.29 Other acidosis; J44.0 Chronic obstructive pulmonary disease with (acute) lower respiratory infection; J15.9 Unspecified bacterial pneumonia; J44.1 Chronic obstructive pulmonary disease with (acute) exacerbation; E88.09 Other disorders of plasma-protein metabolism, not elsewhere classified; Z88.0 Allergy status to penicillin; Z91.199 Patient's noncompliance with other medical treatment and regimen due to unspecified reason; Z87.891 Personal history of nicotine dependence; Z99.81 Dependence on supplemental oxygen
CPT/HCPCS: 36415; 36600; 71045; 71250; 80048; 80053; 80061; 81001; 82803; 83036; 83605; 83735; 83880; 84100; 84145; 84484; 85018; 85025; 85379; 85610; 85730; 87040; 87081; 93005; 93306; 94640; 94660; 94760; 96365; 96375; 97161; 97530; 99291; A4615; A4620; A6213; A6250; A6258; A6590; G0378; J1644; J1938; J1956; J2405; J2919; J3490; J7030